=== PATIENT | female | born 1985 | race Caucasian/White ===

== ENCOUNTER 2021-07-14 19:35 | Emergency (ER) | payer OTHER ==
[~2021-07-14 19:35] MED LIST: ZITHROMAX250 MG PO
[2021-07-14] MEDS ORDERED: PROAIR HFA8.5 GM INH (22:53)
[2021-07-14] MEDS ORDERED: PREDNISONE 20 M20 MG PO (22:53)
[2021-07-14] MEDS ORDERED: AUGMENTIN 875-1 EACH PO (22:53)
== END 2021-07-14 22:04 | disposition home or self-care (01) ==
LOC: ER1 19:35
DX: H66.93 Otitis media, unspecified, bilateral (principal); Z20.822 Contact with and (suspected) exposure to COVID-19; J20.9 Acute bronchitis, unspecified; J01.80 Other acute sinusitis
CPT/HCPCS: 0240U; 71045; 99283

== ENCOUNTER 2021-09-03 17:35 | Emergency (ER) | payer OTHER ==
[~2021-09-03 17:35] MED LIST changes: +AUGMENTIN 875-1 EACH PO; +PREDNISONE 20 M20 MG PO; +PROAIR HFA8.5 GM INH
== END 2021-09-03 21:45 | disposition home or self-care (01) ==
LOC: ER1 17:35
DX: U07.1 COVID-19 (principal)
CPT/HCPCS: 0240U; 99283